=== PATIENT | male | born 1980 | race Caucasian/White ===

== ENCOUNTER 2022-09-01 00:33 | Emergency (ER) | payer MEDICAID ==
[2022-09-01] MEDS ORDERED: Lidocaine 4% 1 each Patch TOP PRN (00:46)
== END 2022-09-01 03:28 | disposition home or self-care (01) ==
LOC: MW.ED 00:33
DX: S22.31XA Fracture of one rib, right side, initial encounter for closed fracture (principal); Z88.0 Allergy status to penicillin; W18.2XXA Fall in (into) shower or empty bathtub, initial encounter
CPT/HCPCS: 71250; 71250-26; 99283; 99285